=== PATIENT | male | born 1995 | race Hispanic/Latino ===

== ENCOUNTER 2017-08-18 18:54 | Emergency (ER) | payer SELFPAY ==
[~2017-08-18 18:54] MED LIST: ISOVUE-370 76%-LOCM 1 ML ONE
[2017-08-18 19:16] LABS: #Basophils 0.1 thou/uL (0.0-0.2); #Eosinphils 0.2 thou/uL (0.0-0.7); #Lymphocytes 4.6 thou/uL (1.20-3.40); #Monocytes 0.9 thou/uL (0.11-0.59); #Neutrophils 8.2 thou/uL (1.40-6.50); %Basophils 0.9 % (0.0-1.0); %Eosinophils 1.2 % (0.0-10.0); %Lymphocytes 32.9 % (21.0-51.0); %Monocytes 6.7 % (0.0-10.0); %Neutrophils 58.4 % (42.0-75.0); Hemoglobin 13.6 g/dL (14.0-18.0); Mean Corpuscular HGB CONC 33.9 g/dL (32.0-36.0); Mean Corpuscular Hemoglobin 32.4 pg (27.0-31.0); Mean Corpuscular Volume 95.5 fl (80.0-94.0); Mean Platelet Volume 8.3 fL (7.4-10.4); Platelet Count 218 thou/uL (130-400); RBC Distribution Width 11.7 % (11.5-14.5); White Blood Cell (WBC) Count 13.9 thou/uL (4.8-10.8)
[2017-08-18 19:34] LABS: ALT (SGPT) 30 U/L (8-55); AST (SGOT) 37 U/L (5-34); Albumin 4.5 g/dL (3.5-5.0); Alcohol 33 mg/dL (Less than 10); Alkaline Phosphatase 45 U/L (40-150); Anion Gap 16 mmol/L (10-20); BUN (Urea Nitrogen) 20 mg/dL (8.9-20.6); Calc. Creatinine Clearance 0 mL/min (70-130); Calcium 9.1 mg/dL (7.8-10.44); Carbon Dioxide 21 mmol/L (22-29); Chloride 104 mmol/L (98-107); Estimated GFR-MDRD Greater than 90; Globulin 2.5 g/dL (2.4-3.5); Glucose 86 mg/dL (70-105); Lipase 16 U/L (8-78); Potassium 3.7 mmol/L (3.5-5.1); Sodium 137 mmol/L (136-145)
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
[2017-08-18 20:05] LABS: INR-International Normal Ratio 1.1; Prothrombin Time 14.6 SEC (12.0-14.7)
[2017-08-18 20:10] LABS: PTT 29.2 SEC (22.9-36.1)
[2017-08-18] MEDS ORDERED: Bupivacaine 0.5% 10 ML VIAL ONE (20:18)
[2017-08-18] MEDS ORDERED: Lidocaine 1% w/Epinephrine 1:100K 20 ML VIAL ONE (20:18)
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
[2017-08-18 20:37] LABS: Bilirubin Negative (Negative); Blood, Urine Negative (Negative); Clarity CLEAR (Clear); Glucose, Urine (Dipstick) Negative (Negative); Leukocyte Negative (Negative); Nitrite Negative (Negative); Protein, Urine (Dipstick) Negative (Neg-Trace); Specific Gravity, Urine 1.025 (1.002-1.036); Urobilinogen 0.2 mg/dL (0.2-1.0); pH, Urine 6.5 (5.0-9.0)
[2017-08-18 20:45] LABS: Amphetamine Not Detected (NotDetected); Barbiturates Screen Not Detected (NotDetected); Benzodiazepine Screen Not Detected (NotDetected); Cocaine Metabolite Screen Not Detected (NotDetected); Medtox Control Line Valid? VALID (VALID); Medtox Reader # READER 1; Methadone Not Detected (NotDetected); Methamphetamine Not Detected (NotDetected); Opiate Screen Not Detected (NotDetected); Oxycodone Screen Not Detected (NotDetected); Phencyclidine (PCP) Not Detected (NotDetected); THC/Cannabinoid Screen Not Detected (NotDetected); Tricyclic Screen Not Detected (NotDetected)
[2017-08-18] MEDS ORDERED: CEFAZOLIN/Water 2 GM/20 ML SYRINGE ONE (20:55)
[2017-08-18] MEDS ORDERED: Adacel (T-DAP) 0.5 ML VIAL ONE (20:55)
--- NOTE | 2017-08-18 21:27 | RAD ---
TWO VIEWS OF THE LEFT WRIST 08/18/17 INDICATION: Post reduction. COMPARISON: Prior dated exam performed earlier at 8:01 p.m. IMPRESSION: There has been interval placement of a fiberglass splint. The dorsally impacted intra-articular dista l radius fracture is unchanged in position. No additional change is evident. POS: [facility]
[2017-08-18] MEDS ORDERED: HYDROcodone/Acetaminophen 5/325 mg Tablet ONE (22:03)
== END 2017-08-18 22:17 | disposition home or self-care (01) ==
LOC: EDBD → ERS 18:54
DX: S52.572A Other intraarticular fracture of lower end of left radius, initial encounter for closed fracture (principal); S01.81XA Laceration without foreign body of other part of head, initial encounter; F17.210 Nicotine dependence, cigarettes, uncomplicated; Z71.6 Tobacco abuse counseling; V03.99XA Pedestrian with other conveyance injured in collision with car, pick-up truck or van, unspecified whether traffic or nontraffic accident, initial encounter
CPT/HCPCS: 12015; 25605; 36415; 70450; 70486; 71260; 72125; 74177; 80053; 80306; 80307; 81003; 83690; 85025; 85610; 85730; 90471; 90715; 96361; 96374; 99406; J2001; J3490

== ENCOUNTER 2017-08-24 06:20 | Day surgery (SDC) | payer OTHER, SELFPAY ==
[2017-08-23 11:25] VITALS: BMI 22.8
[2017-08-24] MEDS ORDERED: Fentanyl 100 MCG/2 ML VIAL ONE ×2 (06:22→06:32)
[2017-08-24] MEDS ORDERED: Midazolam HCl 2 mg/2 ml Vial ONE ×3 (06:32→07:16)
[2017-08-24] MEDS ORDERED: Ropivacaine 0.2% HCl/PF 0 ML ONE (06:32)
[2017-08-24] MEDS ORDERED: HYDROmorphone 0.5 MG/0.5 ML SYRINGE ONE (06:44)
[2017-08-24] MEDS ORDERED: Ondansetron HCl/PF 4 MG/2 ML Vial ONE (06:45)
[2017-08-24] MEDS ORDERED: Dexamethasone 20 MG/5 ML VIAL ONE (06:45)
[2017-08-24] MEDS ORDERED: PROPOFOL 200 MG/20 ML VIAL ONE (06:45)
[2017-08-24] MEDS ORDERED: CEFAZOLIN/Water 2 GM/20 ML SYRINGE ONE (07:14)
[2017-08-24] MEDS ORDERED: Bupivacaine PF 0.5% 30 ML VIAL ONE (08:23)
--- NOTE | 2017-08-24 08:48 | OP ---
PREOPERATIVE DIAGNOSIS: Intraarticular distal radius fracture. POSTOPERATIVE DIAGNOSIS: Intraarticular distal radius fracture. PROCEDURE: Open reduction and internal fixation of left intra-articular distal radius fracture. SURGEON: Brett Butler M.D. SENIOR PROGRAM ANALYST: Brady Kearns PA-C. BLOOD LOSS: Minimal. SPECIMEN: None. DRAINS: None. COMPLICATIONS: None. DESCRIPTION OF PROCEDURE: Left arm was prepped and draped in the usual sterile fashion. After exsan guination, tourniquet was inflated to 250 mmHg. I made a longitudinal incision in FCR tendon sheath. The fracture was identified. Hematoma was removed and irrigation was performed. Fracture was kristyn omically reduced and checked on C-arm fluoroscopy. A Synthes variable angle distal radius plate was applied, checked on C-arm, screws were inserted in the usual fashion. Permanent x-rays were obtained which showed appropriate reduction of fracture, no penetration of hardware. Irrigation was performe d. Tourniquet was released, hemostasis obtained. Subcutaneous tissue closed with 3-0 Vicryl, the sk in was closed with patricia. Sterile dressings applied and the patient placed in a splint. There wer e no complications.
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
== END 2017-08-24 10:40 | disposition home or self-care (01) ==
LOC: EDBD → SDC 06:20
PROVIDERS: ATTEND Orthopaedic Surgery
PROC: 0PSJ04Z Reposition Left Radius with Internal Fixation Device, Open Approach (ICD-10-PCS; principal; 2017-08-24)
DX: S52.572A Other intraarticular fracture of lower end of left radius, initial encounter for closed fracture (principal)
CPT/HCPCS: 76001; C1713; J1100; J1170; J2250; J2405; J2704; J2795; J3010; S0020

== ENCOUNTER 2017-08-29 16:12 | Emergency (ER) | payer OTHER | END 2017-08-29 18:00 | disposition home or self-care (01) | LOC: ERS 16:12 | DX: S01.81XD Laceration without foreign body of other part of head, subsequent encounter (principal); F17.210 Nicotine dependence, cigarettes, uncomplicated ==